=== PATIENT | female | born 1960 | race Caucasian/White ===

== ENCOUNTER 2016-10-11 19:18 | Inpatient (IN) | payer OTHER ==
[~2016-10-11] VITALS: Ht 152.4 cm; Wt 58.6 kg
--- NOTE | 2016-10-11 20:46 | NUR ---
REC'D A 56 YEAR OLD FEMALE IN RM 2A WITH C/O EPIGASTRIC PAIN X 1 DAY. PT REPORTS 1 EPISODE OF VOMITING AND STATES "IT COPPOLA". PT AAOX4, RESP EVEN AND UNLABORED. ON CM. DAUGTHER AT BEDSIDE. WILL CONTINUE TO MONITOR.
[2016-10-11 20:55] LABS: BASOPHIL % 0.1 % (0-2); PLATELET COUNT 187 x10^3mcL (130-400); RED CELL DISTRIBUTION WIDTH 13.4 % (11.5-14.5)
--- NOTE | 2016-10-11 20:59 | NUR ---
MEDICATED PT FOR PAIN; 30 MG TORADOL. PLEASE SEE EMAR.
[2016-10-11 21:04] LABS: CALCIUM 9.4 mg/dL (8.5-10.1); CARBON DIOXIDE 26.8 mmol/L (21-32); CHLORIDE SERUM 107 mmol/L (98-107); CREATININE SERUM 0.9 mg/dL (0.6-1.0); GFR1 > 60 mL/min; GLUCOSE SERUM 142 mg/dL (74-106); POTASSIUM SERUM 3.6 mmol/L (3.5-5.1); SODIUM SERUM 143 mmol/L (136-145)
[2016-10-11 21:08] LABS: ALBUMIN 3.9 g/dL (3.4-5.0); ALKALINE PHOSPHATASE 85 U/L (46-116); ALT/SGPT 84 U/L (14-59); AMYLASE 78 U/L (25-115); AST/SGOT 175 U/L (15-37); BILIRUBIN TOTAL 0.36 mg/dL (0.20-1.00); LIPASE 162 IU/L (73-393); TOTAL PROTEIN, SERUM 7.3 g/dL (6.4-8.2)
[2016-10-11] MEDS ORDERED: LISINOPRIL40 MG PO (22:24)
--- NOTE | 2016-10-11 22:37 | NUR ---
CALLED [employer] TO JONNY RUVALCABA TO ASSUME CARE OF PT
--- NOTE | 2016-10-11 23:15 | NUR ---
PT RECEIVED FROM ED. A/O X4, LIBERIAN SPEAKING ONLY. ON TELE #13, NSR, DENIES CHEST PAIN. PULSES PALPABLE, NO EDEMA NOTED. SCDs IN PLACE. LUNG SOUNDS CTA, BREATHING IS EVEN AND UNLABORED, PT DENIES SOB AT THIS TIME. PT REPORTS LAST BM WAS THIS AM, FORMED. PT DENIES N/V AT THIS TIME, BUT ADMITS TO VOMITING X1 EARLIER IN THE DAY. ABD IS SOFT AND NONDISTENDED. PT REPORTS MINIMAL ABD PAIN, TOLERABLE. PT IS AMBULATORY. SKIN IS INTACT. IVF INFUSING WELL TO LAC, NS @ 100 ML/HR. ORIENTED PT TO SURROUNDINGS AND EQUIPMENT. BED IN LOWEST SETTING, SIDE RAILS UP X2, CALL LIGHT WITHIN REACH. WILL CONTINUE TO MONITOR.
--- NOTE | 2016-10-11 23:28 | NUR ---
NOTIFIED DR SIERRA REGARDING PT'S LACTID ACID-2.6.
[2016-10-11 23:30] VITALS: BP 126/104
[2016-10-11 23:46] LABS: MAGNESIUM 2.2 mg/dL (1.8-2.4); PHOSPHOROUS 1.8 mg/dL (2.5-4.9)
[2016-10-11 23:53] LABS: FREE T4 1.35 ng/dL (0.76-1.46); FREE THYROXINE INDEX 3.9 ug/dL (1.4-4.5); T4(THYROXINE) 10.8 ug/dL (4.7-13.3)
[2016-10-12 00:05] VITALS: BP 124/68
[2016-10-12 00:15] LABS: T3 TOTAL 1.03 ng/mL
[2016-10-12 00:37] LABS: microscopic required? NO
[2016-10-12 01:23] LABS: UA SPECIFIC GRAVITY 1.015 (1.005-1.035); urine erythrocyte NEGATIVE (NEGATIVE)
--- NOTE | 2016-10-12 02:05 | NUR ---
NOTIFIED DR SIERRA OF PT'S PHOSPHOROUS-1.8
[2016-10-12 05:58] VITALS: BP 118/56
--- NOTE | 2016-10-12 06:12 | NUR ---
PT SLEPT AT INTERVALS THROUGHOUT THE NIGHT. NO RESP DISTRESS NOTED. PT ADMITS TO MINIMAL ABD PAIN AT THIS TIME, BUT STATES IT IS TOLERABLE. IVF INFUSING WELL TO LAC. WILL ENDORSE CARE TO AM NURSE.
--- NOTE | 2016-10-12 06:18 | NUR ---
DR LOBO CALLED AND UPDATED PT'S LAB RESULT WITH .
[2016-10-12 06:32] LABS: BASOPHIL % 0.3 % (0-2); PLATELET COUNT 159 x10^3mcL (130-400)
[2016-10-12 06:45] LABS: CALCIUM 8.5 mg/dL (8.5-10.1); CARBON DIOXIDE 22.7 mmol/L (21-32); CHLORIDE SERUM 110 mmol/L (98-107); CREATININE SERUM 0.6 mg/dL (0.6-1.0); GFR1 > 60 mL/min; GLUCOSE SERUM 93 mg/dL (74-106); POTASSIUM SERUM 3.5 mmol/L (3.5-5.1); SODIUM SERUM 142 mmol/L (136-145)
--- NOTE | 2016-10-12 08:45 | NUR ---
GIVEN REPORT TO OR NURSE SHEA AT THIS TIME, CONSENT OBTAIN WITH MONGOLIAN TRANSLATION BY TERESITA RUVALCABA. DR. LOBO ALREADY TALK TO PATIENT AND SON AT BEDSIDE. ALL QUESTIONS WAS ANSWER BY SURGEON.
--- NOTE | 2016-10-12 09:00 | NUR ---
PREP PATIENT FOR OR WITH DELORES WASH, IV [place], TRANSPORT HERE TO TAKE PATIENT DOWN TO OR WITH KATHLEEN RECINOS ACCOMPANIED.
[2016-10-12 12:10] VITALS: BP 115/64
--- NOTE | 2016-10-12 12:10 | NUR ---
RECEIVED PATIENT FROM RECOVERY, DROWSY BUT AWAKE EASILY, STATE PAIN IS 3/10 ABDOMEN, 4 LAPSITE WITH BA C/D/I. CONNECT PATIENT BACK TO IVF ORDERED. VSS. CONT TO MONITOR.
--- NOTE | 2016-10-12 12:56 | NUR ---
PATIENT RESTING IN BED NO ACUTE DISTRESS NOTED, DUE MEDS GIVEN WITH WATER; MORPHINE 2 MG IVP GIVEN FOR 5/10 ABDOMEN PAIN, DTR REMAIN AT BEDSIDE TO ASSIST PATIENT. ICE CHIPS OFFERED, CONT TO MONITOR.
[2016-10-12 14:28] VITALS: BP 113/55
[2016-10-12 17:19] VITALS: BP 124/68
--- NOTE | 2016-10-12 18:21 | NUR ---
PATIENT SIT UP IN BED, EATING FULL LIQUID DINNER AT THIS TIME, DENIES PAIN. DUE MEDS GIVEN, C/O NAUSEA WILL GIVEN, ZOFRAN. ZOFRAN 4 MG IVP GIVEN, CONT TO MONITOR.
--- NOTE | 2016-10-12 19:45 | NUR ---
PT RESTING IN BED WITH SON AT BEDSIDE, A/O X4, MONGOLIAN SPEAKING WITH LIMITED NEPALESE. TELE #13, NSR, DENIES SOB AT THIS TIME. PULSES PALPABLE, NO EDEMA NOTED, SCDs IN PLACE. LUNG SOUNDS CTA, ON 02 2L NC, DENIES SOB. ABD IS SOFT AND FLAT, DENIES N/V AT THIS TIME. BRP, AMBULATORY. BANDAIDS X4 TO THE ABD FROM LAP LUCI, NO ACTIVE BLEEDING OBSERVED. REPORTS 5/10 ABD PAIN, WILL MEDICATE ORDERED. IVF INFUSING WELL TO LAC, NS @ 80 ML/HR. BED IN LOWEST SETTING, SIDE RAILS UP X2, CALL LIGHT WITHIN REACH. WILL CONTINUE TO MONITOR.
[2016-10-12 22:30] VITALS: BP 118/58
--- NOTE | 2016-10-12 22:30 | NUR ---
ASSISTED PT TO BATHROOM, NO BM AT THIS TIME, PT DENIES HAVING GAS. ASSISTED PT TO AMBULATE IN HALLWAY X1. PT REPORTS HAVING SOB. ASSISTED PT BACK TO BED, PLACED PT ON 02 2L NC, 02 SAT-98%. NO RESP DISTRESS OBSERVED. PT REPORTS MINIMAL PAIN AT THIS TIME, BUT REPORTS IT IS TOLERABLE. WILL CONTINUE TO MONITOR.
--- NOTE | 2016-10-13 04:14 | NUR ---
PT RESTING IN BED. NO RESP DISTRESS NOTED. PT ADMITS TO 6/10 ABD PAIN. MEDICATED WITH MORPHINE ORDERED. NO ACTIVE BLEEDING OBSERVED FROM INCISION SITES. IVF INFUSING WELL. WILL MONITOR FOR PAIN RELIEF.
--- NOTE | 2016-10-13 05:30 | NUR ---
DR ARAGON AT BEDSIDE, ENCOURAGED PT TO USE INCENTIVE SPIROMETER. PT DENIES PAIN AND N/V AT THIS TIME. NO ACTIVE BLEEDING FROM INCISION SITES OBSERVED. PT HAS NOT PASSED GAS OR HAD A BM YET. IVF INFUSING WELL TO LAC, NS @ 80 ML/HR. ALL NEEDS MET. WILL ENDORSE CARE TO AM NURSE.
[2016-10-13 05:46] VITALS: BP 116/60
--- NOTE | 2016-10-13 07:10 | NUR ---
RECEIVED REPORT FROM NOC JORDON FULLER. PATIENT IS AWAKE, ALERT AND O X 4. ON TELE # 13. ON 2L VIA NC, NO DISTRESS NOTED, I.S. AT THE BEDSIDE. ABD SOFT ROUND, S/P LAP LUCI 10/12/16, INCISIONS X 4 TO ABD, COVERED WITH BAND AIDS. IV TO LAC IN PLACE. CALL LIGHT WITH IN REACH.
[2016-10-13 09:09] VITALS: BP 112/64
--- NOTE | 2016-10-13 11:50 | NUR ---
IN TO SEE PATIENT AND GIVE DUE MEDICATION AT THIS TIME (SEE EMAR). PATIENT IS RESTING IN BED, NO DISTRESS NOTED. EDUCATED ON A1C LEVELS AND DIABETES. PATIENT VERBALIZED UNDERSTANDING. VISITOR AT THE BEDSIDE. CALL LIGHT WITH IN REACH.
[2016-10-13 12:02] LABS: BILIRUBIN DIRECT 0.1 mg/dL (0.0-0.2); BILIRUBIN TOTAL 0.24 mg/dL (0.20-1.00)
[2016-10-13 12:03] LABS: ALBUMIN 3.3 g/dL (3.4-5.0); TOTAL PROTEIN, SERUM 5.8 g/dL (6.4-8.2)
--- NOTE | 2016-10-13 13:02 | NUR ---
PATIENT EATING REGULAR DIET LUNCH. TOLERATING DIET WELL, DENIES N/V OR PAIN.
--- NOTE | 2016-10-13 13:07 | NUR ---
PATIENT ON ROOM AIR, NO DISTRESS NOTED, DENIES SOB.
[2016-10-13 13:41] VITALS: BP 124/70
[2016-10-13 18:15] VITALS: BP 107/65
--- NOTE | 2016-10-13 19:15 | NUR ---
PATIENT RESTING IN BED, NO DISTRESS NOTED, DENIES ABD PAIN AT THIS TIME. FAMILY AT THE BEDSIDE. CARE ENDORSED TO [facility] JORDON FRANCOIS.
--- NOTE | 2016-10-13 19:50 | NUR ---
RECEIVED REPORT FROM DAY SHIFT RN. PT RESTING IN BED COMFORTABLY. NO C/O ABD PAIN AT THIS TIME. IV ON LAC, NS INFUSING. ABD INCISIONS WITH AILYN X4, JONELLE, NO BLEEDING NOTED. BED IN LOWEST POSITION. SIDE RAILS UP X2. DEMONSTRATED HOW TO USE CALL LIGHT. CALL LIGHT WITHIN REACH. DAUGHTER AT BEDSIDE.
[2016-10-13 21:33] VITALS: BP 106/55
[2016-10-14 06:38] LABS: ALKALINE PHOSPHATASE 73 U/L (46-116); ALT/SGPT 112 U/L (14-59); AST/SGOT 49 U/L (15-37); BILIRUBIN TOTAL 0.43 mg/dL (0.20-1.00); CALCIUM 8.8 mg/dL (8.5-10.1); CARBON DIOXIDE 28.7 mmol/L (21-32); CHLORIDE SERUM 106 mmol/L (98-107); CREATININE SERUM 0.7 mg/dL (0.6-1.0); GFR1 > 60 mL/min; GLUCOSE SERUM 97 mg/dL (74-106); SODIUM SERUM 140 mmol/L (136-145); TOTAL PROTEIN, SERUM 6.5 g/dL (6.4-8.2)
[2016-10-14 06:44] LABS: ALBUMIN 3.2 g/dL (3.4-5.0)
[2016-10-14 06:45] VITALS: BP 136/87
--- NOTE | 2016-10-14 07:00 | NUR ---
PT SLEPT AT LONG INTERVALS DURING SHIFT. C/O ABD PAIN, NORCO GIVEN X1. SAFETY MEASURES MAINTAINED. CALL LIGHT WITHIN REACH. WILL ENDORSE CONTINUITY OF CARE TO ONCOMING RN.
--- NOTE | 2016-10-14 07:10 | NUR ---
RECEIVED REPORT FROM NOC JORDON FRANCOIS AT THIS TIME. PATIENT IS RESTING IN BED, AWAKE, ALERT AND O X 4. TELE # [address], ON ROOM AIR, NO DISTRESS NOTED, LUNGS CTA. BOWEL SOUNDS ACTIVE, PASSING GAS, NO BM. IV TO LAC IN PLACE. DENIES PAIN AT THIS TIME. CALL LIGHT WITHIN REACH.
--- NOTE | 2016-10-14 08:14 | NUR ---
ROUNDS MADE AT THIS TIME. DR. REID, RESIDENT TEAM, CUSTOMER SUPPORT TECHNICIAN LESLIE AND MARNI RN AT THE BEDSIDE. PLAN OF CARE DISCUSSED. QUESTIONS AND CONCERNS ADDRESSED. ENCOURAGED PATIENT TO AMBULATE.
[2016-10-14 09:56] VITALS: BP 126/76
[2016-10-14 11:56] VITALS: Ht 152.4 cm; Wt 58.6 kg
--- NOTE | 2016-10-14 12:41 | NUR ---
PATIENT AMBULATING IN BOWIE ESCORTED BY FAMILY MEMEBER. GAIT IS SLOW, STEADY. TOLERATING ACTIVITY WELL, NO DISTRESS NOTED.
[2016-10-14 13:06] VITALS: BP 145/76
--- NOTE | 2016-10-14 15:10 | NUR ---
NOTIFIED DR. ARAGON PATIENT HAD A BOWEL MOVEMENT AND DENIES ANY PAIN OR NAUSEA WITH FOOD.
[2016-10-14 16:19] LABS: BASOPHIL % 0.3 % (0-2); PLATELET COUNT 156 x10^3mcL (130-400); RED CELL DISTRIBUTION WIDTH 13.8 % (11.5-14.5)
--- NOTE | 2016-10-14 17:51 | NUR ---
MEDICATED PATIENT FOR ABD PAIN 5/10 WITH NORCO (SEE EMAR). SON AT THE BEDSIDE.
[2016-10-14 17:56] VITALS: BP 160/76
--- NOTE | 2016-10-14 19:20 | NUR ---
RECEIVED REPORT FROM DAY SHIFT RN. PT RESTING IN BED COMFORTABLY. NO C/O PAIN AT THIS TIME. IV ON LAC, NS INFUSING. SAFETY MEASURES IN PLACE. INSTRUCTED PT TO CALL IF ASSISTANCE IS NEEDED. CALL LIGHT WITHIN REACH. SON AT BEDSIDE.
[2016-10-14 20:25] VITALS: BP 130/69
[2016-10-14] MEDS ORDERED: NORCO1 TA1 PO (20:26)
[2016-10-14] MEDS ORDERED: ZOF4 PO (20:27)
[2016-10-14] MEDS ORDERED: COLACE100 MG PO (20:27)
[2016-10-14 20:45] VITALS: BP 145/77
--- NOTE | 2016-10-14 22:10 | NUR ---
PT DISCHARGED TO HOME. TRANSPORTATION PROVIDED BY SON (GRISEL GEIGER). TELE MONITOR REMOVED. ABD INCISIONS X4 WITH AILYN, NAILER OPERATOR, NO BLEEDING. IV REMOVED, NO BLEEDING. PT STABLE. NO DISTRESS NOTED.
== END 2016-10-14 22:30 | disposition home or self-care (01) | DRG 263 ==
LOC: ED 19:18 → DU 21:50
PROVIDERS: Emergency Medicine; Internal Medicine Gastroenterology; Surgery; ADMIT Family Medicine
PROC: 8E0W4CZ Robotic Assisted Procedure of Trunk Region, Percutaneous Endoscopic Approach (ICD-10-PCS; 2016-10-12)
PROC: 0FT44ZZ Resection of Gallbladder, Percutaneous Endoscopic Approach (ICD-10-PCS; principal; 2016-10-12 09:30)
DX: K80.20 Calculus of gallbladder without cholecystitis without obstruction (principal); N17.0 Acute kidney failure with tubular necrosis; K80.50 Calculus of bile duct without cholangitis or cholecystitis without obstruction; E83.39 Other disorders of phosphorus metabolism; I10 Essential (primary) hypertension; Z68.25 Body mass index [BMI] 25.0-25.9, adult; R74.0 Nonspecific elevation of levels of transaminase and lactic acid dehydrogenase [LDH]; E44.0 Moderate protein-calorie malnutrition
CPT/HCPCS: 83880; 84439; 94150; J1170; J1885; J2270; J2405; J2543; J2704; J2710; J3010; J3490; J7030; J7120; Q0092